=== PATIENT | female | born 1965 | race Caucasian/White ===

== ENCOUNTER → 2023-11-02 | Outpatient (CLI) | payer BC | END | disposition home or self-care (01) | LOC: LABWHC1 12:23 | PROVIDERS: ATTEND Orthopaedic Surgery | DX: M17.11 Unilateral primary osteoarthritis, right knee | CPT/HCPCS: 87070 ==

== ENCOUNTER 2023-11-16 08:30 | Observation (INO) | payer BC ==
[2023-11-16] MEDS: LACTATED RINGERS 1,000 ML IV ONE (09:05)
[2023-11-16] MEDS ORDERED: droPERidol 5 MG/2 ML VIAL IVP PRN (09:20)
[2023-11-16] MEDS ORDERED: HYDROmorphone 0.5 MG/0.5 ML SYRINGE IVP PRN ×3 (09:20→11:56)
[2023-11-16] MEDS ORDERED: LIDOCAINE 1% (10MG/ML) FOR IV START INTRADERMA PRN (09:20)
[2023-11-16] MEDS: LACTATED RINGERS 1,000 ML IV SCH ×2 (09:25→14:44)
[2023-11-16] MEDS: MIDAZOLAM 2 MG/2 ML VIAL IV ONE (09:25)
[2023-11-16] MEDS: ONDANSETRON 4 MG/2 ML VIAL IVP ONE (09:26)
[2023-11-16] MEDS: DEXAMETHASONE SOD PHOSPHATE 4 MG/ML 1 ML VIAL IV ONE (09:26)
[2023-11-16] MEDS ORDERED: ROPIVACAINE 5 MG/ML 30 ML VIAL ONE (10:06)
[2023-11-16] MEDS ORDERED: PROPOFOL 10 MG/ML 20 ML VIAL IV ONE (10:06)
[2023-11-16] MEDS ORDERED: DEXAMETHASONE SOD PHOSPHATE 4 MG/ML 1 ML VIAL ONE (10:06)
[2023-11-16] MEDS ORDERED: TRANEXAMIC 1,000 MG/100ML-NACL PREMIX BAG ONE (10:06)
[2023-11-16] MEDS ORDERED: fentaNYL (PF) 50 MCG/ML 2 ML AMP ONE (10:06)
[2023-11-16] MEDS ORDERED: MIDAZOLAM 2 MG/2 ML VIAL ONE (10:06)
[2023-11-16] MEDS: ceFAZolin 3,000 MG in SODIUM CHLORIDE 0.9% IRRIGATIO 3,000 ML IRRIGATION ONE (10:38)
[2023-11-16] MEDS ORDERED: ONDANSETRON 4 MG/2 ML VIAL IVP PRN (11:56)
[2023-11-16] MEDS ORDERED: NALOXONE 0.4 MG/ML 1 ML VIAL IV PRN (11:56)
[2023-11-16] MEDS ORDERED: HYDROcodone/APAP 5-325MG 1 EACH TAB PO PRN (11:56)
--- NOTE | 2023-11-16 11:56 | P.OP ---
Date of Procedure: 11/16/23 Preoperative Diagnosis: Right knee osteoarthritis Postoperative Diagnosis: Right knee osteoarthritis Procedure(s) Performed: Right total knee arthroplasty Implants: 1. DePuy attune size 5 right narrow cruciate retaining cemented femur 2. DePuy attune size 4 fixed-bearing cemented tibial baseplate 3. DePuy attune size 5 fixed-bearing cruciate retaining 5 mm polyethylene tibial insert 4. DePuy attune 35 mm all polyethylene cemented patella Anesthesia: regional (Adductor canal catheter, iPAQ block), spinal Surgeon: Toni Marcos Dietetic Technician #1: Dinh Vora Estimated Blood Loss (ml): 40 Pathology: none sent Condition: stable Disposition: PACU Indications for Procedure: 58-year-old patient seen with symptomatic right knee osteoarthritis. After having treatment options discussed, she elected to proceed with total knee arthroplasty. Operative Findings: See description of procedure Description of Procedure: Patient was taken to the operative suite after having an adductor canal catheter placed by the department of anesthesia. Patient underwent a spinal anesthetic by the department of anesthesia. Patient was given preoperative IV intake antibiotics and TXA. A well-padded tourniquet was placed about the [] lower extremity. The lower extremity was then prepped and draped in the normal sterile orthopedic fashion. The extremity was elevated, a tourniquet was insufflated to 300. A standard anterior incision was made sharply through skin. Dissection was taken down through the subcutaneous soft tissues down to the extensor mechanism. A medial arthrotomy was performed, patella was everted and knee was flexed. There was advanced osteoarthritis noted. I introduced my distal intramedullary femoral drill. I then introduced the distal femoral cu tting jig. Heri MORALES secured the cutting jig with 2 pins. I held retractors in position while Heri MORALES performed the distal femoral resection through the guide area we now removed her distal femoral cutting guide. We now placed our 4-in-1 femoral cutting block and positioned and it was secured with 2 pins by Heri MORALES while I held the block in position. The distal femoral finishing was now completed. A proximal tibial cutting guide was positioned. I held the guide in the appropriate position with both hands well Heri MORALES inserted stabilizing pins into the guide. Proximal tibial cut was made. We now placed a trial femoral component into position, along with an appropriate size tibial tray and insert. We now took the knee through range of motion and had full extension good flexion and good overall soft tissue balance noted. The patella was everted and stabilized with 2 towel clips held by Heri MORALES while I performed a flush with patellar quad tendon utilizing a fresh sawblade. We templated the patella, appropriate drill holes were made. An appropriate trial patella was positioned, knee was taken through full range of motion with the patella tracking very nicely. The trial patella was removed. Drill holes were made through the femoral component. All trial components were removed after marking off the appropriate rotation of the tibia. Retractors were now positioned along the proximal tibia. An appropriate keel punch was made with the appropriate size tibial guide by myself on Heri MORALES assisted by holding retractors. At this point appropriate size implants were chosen and opened. The joint was irrigated copiously with pulse lavage mechanical irrigation. The wound was irrigated with pulse lavage mechanical irrigation. We mixed antibiotic methylmethacrylate. We placed the knee into flexion. We placed multiple retractors assisted by Heri MORALES to expose the proximal tibia. Once the methyl methacrylate was ready, the tibial component was cemented into place removing any excess methylmethacrylate form by both myself and Heri MORALES. The femoral component was cemented into place removing the removing any excess methylmethacrylate performed by both myself and Heri MORALES. We then inserted the appropriate size polyethylene tibial insert. We made sure that it was locked into position. We took the knee into full extension, and then back in a flexion making sure we had removed any excess methylmethacrylate. The patellar component was then cemented down and secured with clamp. Excess methylmethacrylate removed. We kept the knee in full extension, patellar clamp in position until methylmethacrylate had hardened. Once it had hardened the patellar clamp was removed. The knee was taken through full range of motion. The patella tracked nicely. There was good soft tissue balancing. The tourniquet was now released. Additional hemostasis was achieved via electrocautery. A second gram of TXA was given. The wound again was irrigated with pulse lavage mechanical irrigation. The extensor mechanism was repaired with Ethibond suture. We checked the repair with range of motion and it was stable. The subcutaneous soft tissues were repaired with Vicryl in layers. The skin was approximated with pernio/Dermabond. Sterile dressings were applied followed by loose web roll and Papito bandage. The patient was transferred to a bed, and taken to recovery in stable and satisfactory condition. Heri MORALES assisted with this complex procedure.
[2023-11-16] MEDS: ROPIVACAINE 1,100 MG, SODIUM CHLORIDE 0.9% 500 ML 330 ML, EMPTY PAIN BALL 1 EACH MISCELLANE PRN (12:35)
--- NOTE | 2023-11-16 13:19 | XR ---
EXAMINATION TYPE: XR knee limited 2 views RT DATE OF EXAM: 11/16/2023 Comparison: None Clinical History: 58-year-old female Evaluation for Postop abnormality and alignment Findings: Images show placement of right total knee arthroplasty. Both distal femoral and proximal tibial compo nents of the prosthesis are well seated without periprosthetic fracture. Alignment grossly anatomic. Anterior soft tissue swelling with scattered soft tissue air as well as intra-articular air related t o recent operation. Impression: Uncomplicated postoperative appearance right total knee arthroplasty.
[2023-11-16] MEDS: HYDROmorphone 0.5 MG/0.5 ML SYRINGE IVP PRN (14:02)
[2023-11-16] MEDS: HYDROcodone/APAP 7.5-325MG 1 EACH TAB PO PRN ×2 (14:41→17:42)
[2023-11-16] MEDS: HYDROmorphone 1 MG/ML 1 ML SYRINGE IVP PRN (15:42)
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
[2023-11-16] MEDS: ALPRAZolam 0.5 MG TAB PO SCH (21:16)
[2023-11-16] MEDS: ASPIRIN 325 MG TAB PO SCH (21:16)
[2023-11-16] MEDS: SENNOSIDES-DOCUSATE SODIUM 1 EACH TAB PO SCH (21:16)
[2023-11-16] MEDS: PANTOPRAZOLE 40 MG TABLET PO SCH (21:16)
[2023-11-16] MEDS: ATORVASTATIN 10 MG TAB PO SCH (21:16)
[2023-11-16] MEDS: METOPROLOL SUCCINATE (ER) 25 MG TAB.ER.24H PO SCH (21:16)
[2023-11-16] MEDS: AMITRIPTYLINE HCL 25 MG TAB PO SCH (21:17)
[2023-11-17] MEDS: SERTRALINE 100 MG TAB PO SCH (08:44)
[2023-11-17] MEDS: NON FORMULARY DRUG (Armodafinil [Armodafinil] 250 MG Tablet) PO SCH (08:48)
[2023-11-17 09:15] LABS: Basophils # (A) 0.01 X 10*3/uL (0.00-0.10); Basophils % (A) 0.1 %; Eosinophils # (A) 0.01 X 10*3/uL (0.04-0.35); Eosinophils % (A) 0.1 %; HCT 35.2 % (37.2-46.3); HGB 11.4 g/dL (12.0-15.0); Lymphocytes # (A) 1.38 X 10*3/uL (0.90-5.00); Lymphocytes % (A) 15.6 %; MCH 29.7 pg (27.0-32.0); MCHC 32.4 g/dL (32.0-37.0); MCV 91.7 FL (80.0-97.0); Mean Platelet Volume 9.7 FL (9.5-12.2); Monocytes % (A) 7.9 %; NRBC Per 100 WBC 0 X 10*3/uL (0.00-0.01); Neutrophils # (A) 6.72 X 10*3/uL (1.80-7.70); Neutrophils % (A) 75.8 %; Platelet Count 251 X 10*3/uL (140-440); RBC 3.84 X 10*6/uL (4.10-5.20); RDW 12.4 % (11.5-14.5); WBC 8.86 X 10*3/uL (4.50-10.00)
--- NOTE | 2023-11-17 10:13 | HP ---
HISTORY AND PHYSICAL DATE OF ANTICIPATED SURGERY: 11/16/2023. HISTORY OF PRESENT ILLNESS: Honey Spear is a 58-year-old patient, seen with symptomatic right knee osteoarthritis. We discussed options. She elected to proceed with right total knee arthroplasty. Consent regarding the procedure was obtained. Preoperative cardiac clearance was provided by Dr. KALEIGH Alas. Her primary care physician is Dr. Fortune. PAST MEDICAL HISTORY: Cardiovascular disease, hypertension, gastroesophageal reflux disease, and hyperlipidemia. PAST SURGICAL HISTORY: Cholecystectomy, hysterectomy, knee arthroscopy, and cervical fusion. DAILY MEDICATIONS: Prevacid, Toprol, and atorvastatin. ALLERGIES: Demerol. SOCIAL HISTORY: She denies tobacco use. PHYSICAL EVALUATION OF THE RIGHT KNEE: Her range of motion is negative 2 to 120 degrees. Mild effusion. Tenderness along the medial and lateral joint line. Positive medial Layla. Ligaments stable. Hip rotation without pain. Distal neurovascular exam is intact. RADIOGRAPHS: Right knee radiographs revealed severe osteoarthritic changes. IMPRESSION: 1. Right knee osteoarthritis. 2. Hypertension. 3. Hyperlipidemia. 4. Cardiovascular disease. PLAN: Right total knee arthroplasty. MMODL / IJN: [id number] /
--- NOTE | 2023-11-17 11:07 | P.PN ---
Subjective Progress Note Date: 11/17/23 Principal diagnosis: Status post right total knee arthroplasty Patient is evaluated at bedside today, she is resting comfortably. She did have a rough day yesterday when the spinal wore off, we have adjusted the pain medication. She was up ambulating with therapy and doing the exercises as instructed. She continues to ice and elevate. She has been urinating with no issues, she denies headaches, lightheadedness, chest pain or shortness of breath Objective - Vital Signs Vital signs: Vital Signs Temp 98.5 F 11/17/23 07:27 Pulse 93 11/17/23 07:27 Resp 17 11/17/23 07:27 BP 106/68 11/17/23 07:27 Pulse Ox 95 11/17/23 07:27 FiO2 Intake & Output 11/16/23 11/17/23 11/17/23 18:59 06:59 18:59 Intake Total 901 Output Total 40 Balance 861 Weight 67 kg Intake: IV 901 Output: Estimated Blood Loss 40 Other: Voiding Method Toilet # Voids 0 1 - Exam Right lower extremity: Incision is clean, dry, and intact. The foam dressing is in good condition. There is minimal soft tissue swelling and ecchymosis surrounding the medial and lateral aspects of the incision. Calf is soft, no tenderness with palpation. Plantar flexion, dorsiflexion, EHL, FHL are intact. Sensory exam to light touch throughout the extremity is intact, dorsal pedis pulses 2+. - Labs CBC & Chem 7: 11/17/23 03:29 Labs: Abnormal Lab Results - Last 24 Hours (Table) 11/17/23 Range/Units 03:29 RBC 3.84 L (4.10-5.20) X 10*6/uL Hgb 11.4 L (12.0-15.0) g/dL Hct 35.2 L (37.2-46.3) % Eosinophils # 0.01 L (0.04-0.35) X 10*3/uL Assessment and Plan Assessment: Postoperative day #1 status post right total knee arthroplasty Plan: Pain control, continue with current regimen. Will add Lyrica 75 mg twice a day DVT prophylaxis, continue aspirin 325 mg twice a day Wound care, continue use of On-Q pain catheter, showering and icing and elevating instructions were discussed Continue PT/OT Encourage incentive spirometer Recommendations appreciated Discharge planning: Due to pain control issues I would like to keep patient in hospital additional night, hopeful discharge to home with home health care on 11/18/2023 Time with Patient: Less than 30
[2023-11-17] MEDS: PREGABALIN 75 MG CAP PO SCH (12:27)
[2023-11-17] MEDS: FERROUS SULFATE 325 MG TAB PO SCH (12:27)
[2023-11-17] MEDS: MULTIVITAMINS, THERA 1 EACH TAB PO SCH (12:27)
--- NOTE | 2023-11-17 12:57 | P.ANPRN ---
Procedure Note - Anesthesia - Nerve Block Performed Right Adductor Canal Infusion Time Out Performed: Yes Date of Procedure: 11/16/23 Procedure Start Time: : Procedure Stop Time: Location of Patient: PreOp Indication: Acute Post-Operative Pain, Requested by Surgeon Sedation Type: Sedate with meaningful contact maintained Preparation: Sterile Prep, Sterile Dressing Position: Supine Catheter: Indwelling Needle Types: Pajunk Needle Gauge: 21 Ultrasound used to visualize needle placement: Yes Ultrasound used to observe medication spread: Yes Blood Aspirated: No Pain Paresthesia on Injection Noted: No Resistance on Injection: Normal Image Stored and Saved: Yes Events: Uneventful and Well Tolerated (ropi .5% 20cc plus dexamethasone 4mg)
--- NOTE | 2023-11-17 12:58 | P.ANPRN ---
Procedure Note - Anesthesia - Nerve Block Performed Right [place] Single Time Out Performed: Yes Date of Procedure: 11/16/23 Procedure Start Time: Procedure Stop Time: Location of Patient: PreOp Indication: Acute Post-Operative Pain, Requested by Surgeon Sedation Type: Sedate with meaningful contact maintained Preparation: Sterile Prep Position: Supine Needle Types: Pajunk Needle Gauge: 21 Ultrasound used to visualize needle placement: Yes Ultrasound used to observe medication spread: Yes Blood Aspirated: No Pain Paresthesia on Injection Noted: No Resistance on Injection: Normal Image Stored and Saved: Yes Events: Uneventful and Well Tolerated (Ropivacaine 0.5% 25 cc plus dexamethasone 4 mg)
--- NOTE | 2023-11-17 12:59 | P.PN ---
Progress Note - Text 11/17/23 632am 58-year-old female status post total knee replacement with Dr. Mobley. Patient has an On-Q pump for postop pain control. She will need HCC with a VAS of 10. The pain is located posteriorly. Dressing clean dry and intact. Plan to continue On-Q pump infusion
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
[2023-11-18 10:15] VITALS: BP 117/75; PULSE 114; RESP 16; TEMP 99.2
--- NOTE | 2023-11-18 11:17 | P.PN ---
Subjective Progress Note Date: 11/18/23 Principal diagnosis: Status post right total knee arthroplasty Patient is evaluated at bedside today, she is resting comfortably. Pain control is better today. She was able to work with physical therapy and do stairs with minimal difficulty. She continues to ice and elevate. She has been urinating with no issues, she denies headaches, lightheadedness, chest pain or shortness of breath Objective - Vital Signs Vital signs: Vital Signs Temp 99.2 F 11/18/23 07:14 Pulse 114 H 11/18/23 07:14 Resp 16 11/18/23 07:14 BP 117/75 11/18/23 07:14 Pulse Ox 96 11/18/23 07:14 FiO2 Intake & Output 11/17/23 11/18/23 11/18/23 18:59 06:59 18:59 Other: Voiding Method Toilet # Voids 3 2 - Exam Right lower extremity: Incision is clean, dry, and intact. The foam dressing is in good condition. There is minimal soft tissue swelling and ecchymosis surrounding the medial and lateral aspects of the incision. Calf is soft, no tenderness with palpation. Plantar flexion, dorsiflexion, EHL, FHL are intact. Sensory exam to light touch throughout the extremity is intact, dorsal pedis pulses 2+. - Labs CBC & Chem 7: 11/17/23 03:29 Assessment and Plan Assessment: Postoperative day #2 status post right total knee arthroplasty Plan: Pain control, plan for discharge home on [place] 7.5 mg / 325 mg. Will also utilize Lyrica 75 mg DVT prophylaxis, aspirin 81 mg twice a day for 30 days Wound care, continue use of On-Q pain catheter, showering and icing and elevating instructions were discussed Home PT/nursing after discharge Encourage incentive spirometer Recommendations appreciated Discharge planning: Plan for discharge home today Time with Patient: Less than 30
--- NOTE | 2023-11-18 11:20 | P.DS ---
Providers Date of admission: 11/16/2023 Expected date of discharge: 11/18/23 Attending physician: Toni Marcos Consults: 11/16/23 11:56 Consult Physician Routine Consulting Provider: Stephen Thakur Consult Reason/Comments: Medical management Do you want consulting provider notified?: Yes Primary care physician: Dinorah Fortune MD Hospital Course: Date of admission: 11/16/2023 Date of discharge: 11/18/2023 Admission diagnosis: Status post right total knee arthroplasty Discharge diagnosis: Same Attending physician: Dr. Marcos Surgical procedures: Right total knee arthroplasty Brief history: Patient is a 58-year-old female with a history of progressive primary right knee osteoarthritis. At this point patient has failed conservative treatment measures and has opted to proceed with a elective right total knee arthroplasty. Hospital course: Details of patient's surgery can be found in operative report. Patient tolerated the procedure well and was subsequently transported to orthopedic floor. Patient's orthopeidc and medical care was provided daily. Patient had daily laboratory tests performed for evaluation of overall blood counts. Patient had daily physical therapy to include strengthening range of motion as well as education with walker ambulation. Patient was treated with aspirin for their postoperative DVT prophylaxis during their inpatient stay. Patient was noted to have a relatively uneventful postoperative course. Patient reported satisfactory pain control with oral pain medications by postoperative day 1. Patient showed satisfactory progress with physical therapy. Patient moved steadily through the program and had no difficulty meeting the goals by postoperative day 2. Given patient's otherwise satisfactory course and having met physical therapy goals, plan is to discharge patient home on postoperative day 2. Discharge condition/disposition: Patient will be discharged home in stable condition. Discharge medications: Instructions are given on resumption of patient's normal daily medications per primary care recommendation, in addition patient will be prescribed [place] 7.5 mg / 325 mg, Lyrica 75 mg, senna S, aspirin 81 mg Discharge instructions: 1. Wound care and infection precautions, keep incision dry and covered while showering, no lotions, creams, moisturizers. No soaking, tubs, pools, hottubs. Do not scrub over the incision. 2. Weight-bear as tolerated with walker / cane until follow-up. 3. Ice and elevate when necessary. Do not exceed 20 minutes per hour with ice pack. 4. Utilize compression sleeve until seen at first follow up appointment. 5. Visiting nursing care. 6. Home physical therapy including home CPM. 7. Pain meds and anticoagulants per prescription. 8. Pain medication has potential to cause constipation. Increase oral fluid and fiber intake. Contact primary care provider if you have not had a bowel movement within 48 hours after discharge 9. No anti-inflammatory medication until discussed at first post operative visit, this including Motrin, Aleve, Mobic, Diclofenac. 10. Follow up in office at 2 weeks postop with Heri Vora PA-C/Chadd Phan 11. Follow up with your primary care doctor 7-10 days after discharge. 12. Contact [facility] with any questions, . Procedures: Right total knee arthroplasty Patient Condition at Discharge: Good Plan - Discharge Summary Discharge Rx Participant: Yes New Discharge Prescriptions: New Ferrous Sulfate [Iron (65 MG Elemental)] 325 mg PO W/LUNCH tab Aspirin [Adult Low Dose Aspirin EC] 81 mg PO BID #60 tab Pregabalin [Lyrica] 75 mg PO BID 14 Days #21 cap HYDROcodone/APAP 7.5-325MG [[place] 7.5] 1 each PO Q4HR PRN #42 tab PRN Reason: Pain Sennosides/Docusate Sodium [Senna-S 8.6-50 mg Tablet] 2 each PO DAILY PRN #30 tablet PRN Reason: Constipation Continue Sertraline [Zoloft] 100 mg PO DAILY Metoprolol Succinate (ER) [Toprol XL] 25 mg PO BID Atorvastatin [Lipitor] 10 mg PO HS Amitriptyline HCl [Elavil] 75 mg PO HS ALPRAZolam [Xanax] 0.5 mg PO HS Lansoprazole 30 mg PO BID armodafiniL 250 mg PO QAM No Action Acetaminophen-Codeine 300-30mg [Tylenol w/codeine #3] 1 tablet BID Discharge Medication List ALPRAZolam [Xanax] 0.5 mg PO HS 11/16/23 [History] Acetaminophen-Codeine 300-30mg [Tylenol w/codeine #3] 1 tablet BID 11/16/23 [History] Amitriptyline HCl [Elavil] 75 mg PO HS 11/16/23 [History] Atorvastatin [Lipitor] 10 mg PO HS 11/16/23 [History] Lansoprazole 30 mg PO BID 11/16/23 [History] Metoprolol Succinate (ER) [Toprol XL] 25 mg PO BID 11/16/23 [History] Sertraline [Zoloft] 100 mg PO DAILY 11/16/23 [History] armodafiniL 250 mg PO QAM 11/16/23 [History] Aspirin [Adult Low Dose Aspirin EC] 81 mg PO BID #60 tab 11/18/23 [Rx] Ferrous Sulfate [Iron (65 MG Elemental)] 325 mg PO W/LUNCH tab 11/18/23 [Rx] HYDROcodone/APAP 7.5-325MG [[place] 7.5] 1 each PO Q4HR PRN #42 tab 11/18/23 [Rx] Pregabalin [Lyrica] 75 mg PO BID 14 Days #21 cap 11/18/23 [Rx] Sennosides/Docusate Sodium [Senna-S 8.6-50 mg Tablet] 2 each PO DAILY PRN #30 tablet 11/18/23 [Rx] Follow up Appointment(s)/Referral(s): [facility] [NON-STAFF] - As Needed [facility] [NON-STAFF] - As Needed (Continuous Passive Motion knee machine) Dinh Vora PAC [PHYSICIAN CLINICAL STUDIES SPECIALIST] - 12/02/23 3:10 pm Dinorah Fortune MD [Primary Care Provider] - 1 Week Activity/Diet/Wound Care/Special Instructions: Orthopedic Discharge Instructions: 1. Wound care and infection precautions, keep incision dry and covered while showering, no lotions, creams, moisturizers. No soaking, pools, hot tubs. Do not scrub over incision. 2. Weight-bear as tolerated with walker / cane until follow-up. 3. Ice and elevate when necessary. Do not exceed 20 minutes per hour with ice pack. 4. Utilize compression sleeve until seen at first follow up appointment. 5. Pain meds and anticoagulants per prescription. 6. Pain medication has potential to cause constipation. Increase oral fluid and fiber intake. Contact primary care provider if you have not had a bowel movement within 48 hours after discharge. 7. No anti-inflammatory medication until discussed at first post operative visit, this including Motrin, Aleve, Mobic, Diclofenac. 8. Follow up in office at 2 weeks postop with Heri Vora PA-C/Chadd Moore PA-C 9. Follow up with your primary care doctor 7-10 days after discharge. 10. Contact [facility] with any questions, . Wound care instructions: 1. Okay to remove surgical dressing as of 11/23/2023 2. Okay to shower directly over the incision after removal of dressing Discharge Disposition: HOME WITH HOME HEALTH SERVICES
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
== END 2023-11-18 15:00 | disposition home health service (06) ==
LOC: OR 08:30 → 4SSUR 12:15 → OR 11-17 11:16
PROVIDERS: ADMIT Orthopaedic Surgery; ATTEND Orthopaedic Surgery
DX: M17.11 Unilateral primary osteoarthritis, right knee (principal); G89.18 Other acute postprocedural pain; I10 Essential (primary) hypertension; E78.5 Hyperlipidemia, unspecified; I25.10 Atherosclerotic heart disease of native coronary artery without angina pectoris; M79.7 Fibromyalgia; G35 Multiple sclerosis; M19.91 Primary osteoarthritis, unspecified site; F32.A Depression, unspecified; F41.9 Anxiety disorder, unspecified; K21.9 Gastro-esophageal reflux disease without esophagitis; R00.0 Tachycardia, unspecified; Z79.899 Other long term (current) drug therapy; Z88.5 Allergy status to narcotic agent; Z87.891 Personal history of nicotine dependence; Z90.49 Acquired absence of other specified parts of digestive tract
CPT/HCPCS: 97116; 97161; 36410; 76937; 64999; 64448; 85025; 73560; 27447; G0378 ×2; C1776; C1713 ×2; C1751; J2250; J1100; J0690 ×2; J2405; J3010; J1170 ×4; J2795; J2704